=== PATIENT | male | born 1945 | race Caucasian/White ===

== ENCOUNTER 2017-08-21 12:12 | Outpatient (CLI) | payer MEDICARE ==
--- NOTE | 2017-08-21 14:23 | PET ---
PET SCAN FOR DEMENTIA: HISTORY: Altered mental status. Degeneration of brain/dementia. COMPARISON: None. CORRELATION: Head CT 06/21. TECHNIQUE: PET scan with CT attenuation correction is performed from the brain. The patient was administered 8. 6 mCi of [id number]. FINDINGS: Homogeneous distribution of radiotracer in the brain parenchyma. No evidence of decreased FDG avidit y. IMPRESSION: Unremarkable exam. POS: [facility]
== END 2017-08-21 12:13 | disposition home or self-care (01) ==
LOC: PET 12:12
PROVIDERS: ATTEND Psychiatry & Neurology Neurology
DX: G31.1 Senile degeneration of brain, not elsewhere classified (principal)
CPT/HCPCS: 78608; A9552

== ENCOUNTER 2019-05-26 17:35 | Emergency (ER) | payer MEDICARE ==
[2019-05-26 18:54] LABS: #Basophils 0.1 thou/uL (0.0-0.2); #Eosinphils 0.3 thou/uL (0.0-0.7); #Lymphocytes 3.6 thou/uL (1.20-3.40); #Monocytes 0.9 thou/uL (0.11-0.59); #Neutrophils 6.2 thou/uL (1.40-6.50); %Eosinophils 2.3 % (0.0-10.0); %Lymphocytes 32.4 % (21.0-51.0); %Monocytes 8.4 % (0.0-10.0); %Neutrophils 55.8 % (42.0-75.0); Hemoglobin 14.5 g/dL (14.0-18.0); Mean Corpuscular HGB CONC 33.8 g/dL (32.0-36.0); Mean Corpuscular Hemoglobin 34.1 pg (27.0-31.0); Mean Platelet Volume 7.8 fL (7.4-10.4); Platelet Count 202 thou/uL (130-400); RBC Distribution Width 13.1 % (11.5-14.5); Red Blood Cell (RBC) Count 4.24 mill/uL (4.70-6.10)
[2019-05-26 19:13] LABS: ALT (SGPT) 17 U/L (8-55); AST (SGOT) 16 U/L (5-34); Albumin 3.6 g/dL (3.4-4.8); Alkaline Phosphatase 105 U/L (40-110); Anion Gap 11 mmol/L (10-20); BUN (Urea Nitrogen) 26 mg/dL (8.4-25.7); Bilirubin, Total 0.3 mg/dL (0.2-1.2); Calc. Creatinine Clearance 0 mL/min (70-130); Calcium 9.1 mg/dL (7.8-10.44); Carbon Dioxide 30 mmol/L (23-31); Chloride 106 mmol/L (98-107); Estimated GFR-MDRD 43; Globulin 2.9 g/dL (2.4-3.5); Glucose 180 mg/dL (83-110); Potassium 4.1 mmol/L (3.5-5.1); Protein, Total 6.5 g/dL (5.8-8.1); Sodium 143 mmol/L (136-145)
[2019-05-26 19:24] LABS: Bacteria/HPF None Seen HPF (None Seen); Bilirubin Negative (Negative); Blood, Urine Negative (Negative); Clarity Clear (Clear); Glucose, Urine (Dipstick) 70 mg/dL (Negative); Leukocyte Negative Leu/uL (Negative); Nitrite Negative (Negative); Protein, Urine (Dipstick) 300 mg/dL (Neg-Trace); RBC/HPF 0-3 HPF (0-3); Squamous Epithelial 0-3 HPF (0-3); Urobilinogen Normal mg/dL (Less than 2); WBC/HPF 0-3 HPF (0-3)
--- NOTE | 2019-05-26 19:50 | CT ---
CT BRAIN WITHOUT CONTRAST: HISTORY: Altered mental status, dementia COMPARISON: 06/11/2016 FINDINGS: No evidence of acute infarct, hemorrhage, midline shift or abnormal extra-axial fluid collections is seen. The ventricular size is appropriate and the basilar cisterns are patent. The bony calvarium is intact. The visualized paranasal sinuses and mastoid air cells are well aerated. IMPRESSION: No CT evidence of acute intracranial process.
== END 2019-05-26 21:32 | disposition home or self-care (01) ==
LOC: ERS 17:35
DX: Z00.00 Encounter for general adult medical examination without abnormal findings (principal); I10 Essential (primary) hypertension; E78.00 Pure hypercholesterolemia, unspecified; F03.90 Unspecified dementia, unspecified severity, without behavioral disturbance, psychotic disturbance, mood disturbance, and anxiety; Z79.82 Long term (current) use of aspirin; Z79.899 Other long term (current) drug therapy
CPT/HCPCS: 36415; 70450; 80053; 81003; 81015; 85025; 93005

== ENCOUNTER 2020-08-11 10:53 | Inpatient (IN) | payer MEDICARE ==
[2020-08-11 12:11] LABS: ALT (SGPT) 19 U/L (8-55); AST (SGOT) 18 U/L (5-34); Albumin 3.9 g/dL (3.4-4.8); Alkaline Phosphatase 103 U/L (40-110); Anion Gap 12 mmol/L (10-20); BUN (Urea Nitrogen) 26 mg/dL (8.4-25.7); Bilirubin, Total 0.5 mg/dL (0.2-1.2); Calc. Creatinine Clearance 0 mL/min (70-130); Calcium 9.7 mg/dL (7.8-10.44); Carbon Dioxide 23 mmol/L (23-31); Chloride 110 mmol/L (98-107); Globulin 3.3 g/dL (2.4-3.5); Glucose 148 mg/dL (83-110); Lipase 21 U/L (8-78); Potassium 4.2 mmol/L (3.5-5.1); Protein, Total 7.2 g/dL (5.8-8.1); Sodium 141 mmol/L (136-145)
[2020-08-11 12:26] LABS: Eosinophils 3 % (0-10); Hemoglobin 14.4 g/dL (14.0-18.0); Lymphocytes 27 % (21-51); MDiff Complete? YES; Mean Corpuscular HGB CONC 33.6 g/dL (32.0-36.0); Mean Corpuscular Hemoglobin 33.8 pg (27.0-31.0); Mean Platelet Volume 9.1 fL (7.4-10.4); Monocytes 5 % (0-10); Neutrophil 63 % (42-75); Platelet Count 120 thou/uL (130-400); Platelet Morphology Comment Appears Decreased; RBC Distribution Width 12.4 % (11.5-14.5); Reactive Lymphocytes 2 % (0-10); Red Blood Cell (RBC) Count 4.25 mill/uL (4.70-6.10); Small Platelets SLIGHT; White Blood Cell (WBC) Count 10.6 thou/uL (4.8-10.8)
[2020-08-11 12:40] LABS: CKMB 4.7 ng/mL (0-6.6)
[2020-08-11] MEDS ORDERED: Aspirin Chewable 81 MG TAB ONE (12:50)
[2020-08-11] MEDS ORDERED: Enoxaparin Sodium 100 MG/ML SYRINGE ONE (12:55)
[2020-08-11] MEDS ORDERED: Acetaminophen 650 MG Suppository PR PRN (14:39)
[2020-08-11] MEDS ORDERED: Nitroglycerin 0.4 MG TAB (25 Tab Bottle) SL PRN (14:39)
[2020-08-11 15:50] LABS: Troponin I 1.651 ng/mL (< 0.028)
[2020-08-11 19:28] LABS: Troponin I 1.893 ng/mL (< 0.028)
[2020-08-11] MEDS: Atorvastatin Calcium 40 MG TAB PO SCH (21:19)
[2020-08-11] MEDS: Acetaminophen 325 MG TAB PO PRN (21:25)
[2020-08-12 01:53] LABS: SARS-CoV-2 PCR by NAA Not Detected (NotDetected)
[2020-08-12 02:33] VITALS: BMI 33.9
[2020-08-12 05:32] LABS: #Basophils 0.1 thou/uL (0.0-0.2); #Eosinphils 0.3 thou/uL (0.0-0.7); #Lymphocytes 4.2 thou/uL (1.20-3.40); #Monocytes 1.2 thou/uL (0.11-0.59); #Neutrophils 5.8 thou/uL (1.40-6.50); %Basophils 1.2 % (0.0-1.0); %Eosinophils 2.6 % (0.0-10.0); %Lymphocytes 35.8 % (21.0-51.0); %Monocytes 10.1 % (0.0-10.0); %Neutrophils 50.2 % (42.0-75.0); Mean Corpuscular Hemoglobin 32.4 pg (27.0-31.0); Mean Platelet Volume 8.1 fL (7.4-10.4); Platelet Count 202 thou/uL (130-400); RBC Distribution Width 12.3 % (11.5-14.5); Red Blood Cell (RBC) Count 4.03 mill/uL (4.70-6.10); White Blood Cell (WBC) Count 11.6 thou/uL (4.8-10.8)
[2020-08-12 05:55] LABS: Anion Gap 10 mmol/L (10-20); BUN (Urea Nitrogen) 31 mg/dL (8.4-25.7); Calc. Creatinine Clearance 59 mL/min (70-130); Calcium 9.1 mg/dL (7.8-10.44); Carbon Dioxide 25 mmol/L (23-31); Cardiac Risk 2.9 (Less than 4.5); Chloride 111 mmol/L (98-107); Cholesterol 152 mg/dl (< 200 Desired); Glucose 112 mg/dL (83-110); HDL Cholesterol 52 mg/dL (>60 Neg Risk); LDL Cholesterol, Calculated 66 mg/dL; Potassium 3.9 mmol/L (3.5-5.1); Sodium 142 mmol/L (136-145); Triglycerides 170 mg/dL (Less than 150)
[2020-08-12] MEDS ORDERED: Communication Order-Pharmacy FS SCH (07:45)
[2020-08-12] MEDS: Sodium Chloride 0.9% 1,000 ML IV SCH ×2 (09:46→20:17)
[2020-08-12] MEDS: Aspirin 81 mg Enteric Coated Tablet PO SCH (09:47)
[2020-08-12] MEDS: Enoxaparin Sodium 100 MG/ML SYRINGE SC SCH ×2 (09:47→20:16)
[2020-08-12] MEDS: Amlodipine 5 MG TAB PO SCH (09:47)
[2020-08-12] MEDS: Atorvastatin Calcium 40 MG TAB PO SCH (20:16)
[2020-08-13] MEDS: Nitroglycerin 2% Ointment 1 INCH/1 GM Packet TOP SCH ×3 (00:15→16:03)
[2020-08-13] MEDS: Sodium Chloride 0.9% 1,000 ML IV SCH ×2 (04:30→16:03)
[2020-08-13 04:52] LABS: #Basophils 0.1 thou/uL (0.0-0.2); #Eosinphils 0.4 thou/uL (0.0-0.7); #Lymphocytes 3.7 thou/uL (1.20-3.40); #Neutrophils 5.1 thou/uL (1.40-6.50); %Basophils 1.4 % (0.0-1.0); %Eosinophils 3.6 % (0.0-10.0); %Lymphocytes 35.8 % (21.0-51.0); %Monocytes 9.6 % (0.0-10.0); %Neutrophils 49.5 % (42.0-75.0); Hemoglobin 12.4 g/dL (14.0-18.0); Mean Corpuscular HGB CONC 32.2 g/dL (32.0-36.0); Mean Corpuscular Hemoglobin 32.8 pg (27.0-31.0); Mean Platelet Volume 7.7 fL (7.4-10.4); Platelet Count 183 thou/uL (130-400); RBC Distribution Width 12.4 % (11.5-14.5); Red Blood Cell (RBC) Count 3.77 mill/uL (4.70-6.10); White Blood Cell (WBC) Count 10.4 thou/uL (4.8-10.8)
[2020-08-13 05:15] LABS: Anion Gap 10 mmol/L (10-20); BUN (Urea Nitrogen) 26 mg/dL (8.4-25.7); Calc. Creatinine Clearance 62 mL/min (70-130); Calcium 8.7 mg/dL (7.8-10.44); Carbon Dioxide 22 mmol/L (23-31); Chloride 112 mmol/L (98-107); Glucose 106 mg/dL (83-110); Potassium 4.4 mmol/L (3.5-5.1); Sodium 140 mmol/L (136-145)
[2020-08-13] MEDS: Aspirin 81 mg Enteric Coated Tablet PO SCH (08:59)
[2020-08-13] MEDS: Enoxaparin Sodium 100 MG/ML SYRINGE SC SCH ×2 (08:59→21:06)
[2020-08-13] MEDS: Amlodipine 5 MG TAB PO SCH (08:59)
[2020-08-13] MEDS: Atorvastatin Calcium 40 MG TAB PO SCH (21:06)
[2020-08-14] MEDS: Nitroglycerin 2% Ointment 1 INCH/1 GM Packet TOP SCH ×2 (01:50→08:43)
[2020-08-14] MEDS: Sodium Chloride 0.9% 1,000 ML IV SCH (03:22)
[2020-08-14 05:35] LABS: #Basophils 0.1 thou/uL (0.0-0.2); #Eosinphils 0.3 thou/uL (0.0-0.7); #Lymphocytes 3.9 thou/uL (1.20-3.40); #Monocytes 1.2 thou/uL (0.11-0.59); %Basophils 0.7 % (0.0-1.0); %Eosinophils 2.6 % (0.0-10.0); %Lymphocytes 33.8 % (21.0-51.0); %Monocytes 10.5 % (0.0-10.0); %Neutrophils 52.5 % (42.0-75.0); Hemoglobin 13.1 g/dL (14.0-18.0); Mean Corpuscular HGB CONC 32.3 g/dL (32.0-36.0); Mean Corpuscular Hemoglobin 32.7 pg (27.0-31.0); Mean Platelet Volume 7.8 fL (7.4-10.4); Platelet Count 178 thou/uL (130-400); RBC Distribution Width 12.3 % (11.5-14.5); Red Blood Cell (RBC) Count 3.99 mill/uL (4.70-6.10); White Blood Cell (WBC) Count 11.4 thou/uL (4.8-10.8)
[2020-08-14 05:55] LABS: Anion Gap 11 mmol/L (10-20); BUN (Urea Nitrogen) 23 mg/dL (8.4-25.7); Calc. Creatinine Clearance 61 mL/min (70-130); Calcium 8.8 mg/dL (7.8-10.44); Carbon Dioxide 20 mmol/L (23-31); Chloride 112 mmol/L (98-107); Glucose 104 mg/dL (83-110); Potassium 3.9 mmol/L (3.5-5.1); Sodium 139 mmol/L (136-145)
[2020-08-14] MEDS ORDERED: Lidocaine 1% (PF) 30 ML VIAL ONE (06:37)
[2020-08-14] MEDS ORDERED: Midazolam HCl 2 mg/2 ml Vial ONE (07:10)
[2020-08-14] MEDS ORDERED: Fentanyl 100 MCG/2 ML VIAL ONE (07:11)
[2020-08-14] MEDS ORDERED: hydrALAZINE 20 MG/ML VIAL ONE (07:19)
[2020-08-14] MEDS ORDERED: Heparin 10,000 UNITS/ 10 ML VIAL ONE (07:21)
[2020-08-14] MEDS ORDERED: Aspirin Chewable 81 MG TAB ONE (07:38)
[2020-08-14] MEDS ORDERED: Clopidogrel Bisulfate 300 MG TAB ONE (07:41)
[2020-08-14] MEDS: Amlodipine 5 MG TAB PO SCH (08:43)
[2020-08-14] MEDS: Aspirin 81 mg Enteric Coated Tablet PO SCH (08:43)
[2020-08-14] MEDS ORDERED: Iopamidol 370 76% 50 ML VIAL FS ONE (08:48)
[2020-08-14] MEDS ORDERED: Iopamidol 370 76% 100 ML VIAL ONE (08:48)
[2020-08-14] MEDS ORDERED: Sodium Chloride 0.9% 1,000 ML IV SCH (09:30)
[2020-08-14] MEDS: Acetaminophen 325 MG TAB PO PRN (11:18)
[2020-08-14] MEDS: Atorvastatin Calcium 40 MG TAB PO SCH (20:17)
[2020-08-15] MEDS ORDERED: hydrALAZINE 20 MG/ML VIAL SLOW IVP PRN (04:34)
[2020-08-15] MEDS: Amlodipine 5 MG TAB PO SCH (04:45)
[2020-08-15 05:41] LABS: #Basophils 0.1 thou/uL (0.0-0.2); #Eosinphils 0.2 thou/uL (0.0-0.7); #Lymphocytes 2.6 thou/uL (1.20-3.40); #Monocytes 1.2 thou/uL (0.11-0.59); #Neutrophils 6.8 thou/uL (1.40-6.50); %Basophils 0.6 % (0.0-1.0); %Monocytes 10.7 % (0.0-10.0); %Neutrophils 62.7 % (42.0-75.0); Hemoglobin 11.6 g/dL (14.0-18.0); Mean Corpuscular HGB CONC 32.5 g/dL (32.0-36.0); Mean Platelet Volume 7.7 fL (7.4-10.4); Platelet Count 177 thou/uL (130-400); RBC Distribution Width 12.4 % (11.5-14.5); Red Blood Cell (RBC) Count 3.51 mill/uL (4.70-6.10); White Blood Cell (WBC) Count 10.9 thou/uL (4.8-10.8)
[2020-08-15 06:01] LABS: ALT (SGPT) 68 U/L (8-55); AST (SGOT) 62 U/L (5-34); Albumin 3.3 g/dL (3.4-4.8); Alkaline Phosphatase 85 U/L (40-110); Anion Gap 11 mmol/L (10-20); BUN (Urea Nitrogen) 18 mg/dL (8.4-25.7); Bilirubin, Total 0.7 mg/dL (0.2-1.2); Calc. Creatinine Clearance 67 mL/min (70-130); Calcium 8.5 mg/dL (7.8-10.44); Carbon Dioxide 21 mmol/L (23-31); Chloride 111 mmol/L (98-107); Globulin 2.6 g/dL (2.4-3.5); Glucose 109 mg/dL (83-110); Potassium 3.6 mmol/L (3.5-5.1); Protein, Total 5.9 g/dL (5.8-8.1); Sodium 139 mmol/L (136-145)
[2020-08-15 07:59] VITALS: TEMP 98
[2020-08-15] MEDS ORDERED: Aspirin Chewable 81 MG TAB PO SCH (09:00)
[2020-08-15] MEDS ORDERED: Clopidogrel Bisulfate 75 MG TAB PO SCH (09:00)
[2020-08-15] MEDS: Aspirin 81 mg Enteric Coated Tablet PO SCH (09:08)
[2020-08-15 11:39] VITALS: BP 181/81
== END 2020-08-15 19:12 | disposition home or self-care (01) | DRG 247 ==
LOC: ERS 10:53 → ERHOLD 15:01 → 2SE 19:03
PROVIDERS: ADMIT Internal Medicine; ATTEND Hospitalist
PROC: 027034Z Dilation of Coronary Artery, One Artery with Drug-eluting Intraluminal Device, Percutaneous Approach (ICD-10-PCS; principal; 2020-08-14)
PROC: 4A023N7 Measurement of Cardiac Sampling and Pressure, Left Heart, Percutaneous Approach (ICD-10-PCS; 2020-08-14)
PROC: B2111ZZ Fluoroscopy of Multiple Coronary Arteries using Low Osmolar Contrast (ICD-10-PCS; 2020-08-14)
PROC: B2151ZZ Fluoroscopy of Left Heart using Low Osmolar Contrast (ICD-10-PCS; 2020-08-14)
DX: I21.4 Non-ST elevation (NSTEMI) myocardial infarction (principal); Z20.822 Contact with and (suspected) exposure to COVID-19; E78.5 Hyperlipidemia, unspecified; F03.90 Unspecified dementia, unspecified severity, without behavioral disturbance, psychotic disturbance, mood disturbance, and anxiety; F41.9 Anxiety disorder, unspecified; I12.9 Hypertensive chronic kidney disease with stage 1 through stage 4 chronic kidney disease, or unspecified chronic kidney disease; F32.9 Major depressive disorder, single episode, unspecified; E78.00 Pure hypercholesterolemia, unspecified; R29.6 Repeated falls; N18.30 Chronic kidney disease, stage 3 unspecified; I25.110 Atherosclerotic heart disease of native coronary artery with unstable angina pectoris; Z88.8 Allergy status to other drugs, medicaments and biological substances; Z79.899 Other long term (current) drug therapy; Z79.82 Long term (current) use of aspirin
CPT/HCPCS: 36415; 71045; 76942; 78451; 80048; 80053; 80061; 82553; 83690; 83735; 84443; 84484; 85025; 85347; 87635; 92928; 93005; 93010; 93306; 93458; 93798; 94760; 96372; 99152; 99153; A9540; C9600; J0360; J1644; J1650; J2001; J2250; J3010; Q9967; U0003; U0005

== ENCOUNTER 2020-09-15 14:45 | Inpatient (IN) | payer MEDICARE ==
[2020-09-15 16:17] LABS: Hemoglobin 12.9 g/dL (14.0-18.0); Mean Corpuscular HGB CONC 34.6 g/dL (32.0-36.0); Mean Corpuscular Hemoglobin 35.2 pg (27.0-31.0); Mean Platelet Volume 8.3 fL (7.4-10.4); Platelet Count 164 thou/uL (130-400); Red Blood Cell (RBC) Count 3.68 mill/uL (4.70-6.10); White Blood Cell (WBC) Count 19.2 thou/uL (4.8-10.8)
[2020-09-15 16:37] LABS: ALT (SGPT) 9 U/L (8-55); AST (SGOT) 9 U/L (5-34); Albumin 3.7 g/dL (3.4-4.8); Alkaline Phosphatase 89 U/L (40-110); Anion Gap 11 mmol/L (10-20); BUN (Urea Nitrogen) 20 mg/dL (8.4-25.7); Bilirubin, Total 0.8 mg/dL (0.2-1.2); Calc. Creatinine Clearance 0 mL/min (70-130); Calcium 9.6 mg/dL (7.8-10.44); Carbon Dioxide 23 mmol/L (23-31); Chloride 106 mmol/L (98-107); Globulin 3.6 g/dL (2.4-3.5); Glucose 131 mg/dL (83-110); Potassium 4.2 mmol/L (3.5-5.1); Protein, Total 7.3 g/dL (5.8-8.1); Sodium 136 mmol/L (136-145)
[2020-09-15 16:48] LABS: Lymphocytes 13 % (21-51); MDiff Complete? YES; Macrocytosis SLIGHT = 6-15 cells (100X) (0-5/hpf); Monocytes 11 % (0-10); Neutrophil 76 % (42-75); Platelet Morphology Comment Appears Adequate
[2020-09-15 17:21] LABS: Bilirubin Negative (Negative); Blood, Urine Trace (Negative); Glucose, Urine (Dipstick) Negative (Negative); Ketone, Urine Negative (Negative); Leukocyte Moderate (Negative); Nitrite Positive (Negative); Protein, Urine (Dipstick) > or equal to 300 mg/dL (Neg-Trace); Specific Gravity, Urine 1.015 (1.005-1.030); Urobilinogen 0.2 mg/dL (Less than 2); pH, Urine 8.5 (5.0-9.0)
[2020-09-15 17:23] LABS: Clarity Cloudy (Clear)
[2020-09-15 17:25] LABS: Squamous Epithelial None Seen HPF (0-3); WBC/HPF Greater than 50 HPF (0-3)
[2020-09-15 17:31] LABS: Bacteria/HPF 2+ HPF (None Seen)
[2020-09-15] MEDS ORDERED: cefTRIAXone\\ROCEPHIN 2 GM VIAL ONE (19:06)
[2020-09-15] MEDS ORDERED: Acetaminophen 325 MG TAB PO PRN (22:03)
[2020-09-15] MEDS ORDERED: Ondansetron ODT 4 MG TAB PO PRN (22:03)
[2020-09-15] MEDS ORDERED: Ondansetron PF 4 MG/2 ML Vial IVP PRN (22:03)
[2020-09-15] MEDS: Sodium Chloride 0.9% 1,000 ML IV SCH (23:00)
[2020-09-15 23:06] VITALS: BMI 31.9
[2020-09-16 05:29] LABS: #Lymphocytes 1.4 thou/uL (1.20-3.40); #Monocytes 1.4 thou/uL (0.11-0.59); %Basophils 0.3 % (0.0-1.0); %Eosinophils 0.1 % (0.0-10.0); %Lymphocytes 12.1 % (21.0-51.0); %Monocytes 11.6 % (0.0-10.0); %Neutrophils 75.9 % (42.0-75.0); Hemoglobin 11.7 g/dL (14.0-18.0); Mean Corpuscular HGB CONC 32.3 g/dL (32.0-36.0); Mean Corpuscular Hemoglobin 33.1 pg (27.0-31.0); Mean Platelet Volume 8.3 fL (7.4-10.4); Platelet Count 153 thou/uL (130-400); Red Blood Cell (RBC) Count 3.53 mill/uL (4.70-6.10); White Blood Cell (WBC) Count 11.8 thou/uL (4.8-10.8)
[2020-09-16 05:52] LABS: Anion Gap 12 mmol/L (10-20); BUN (Urea Nitrogen) 19 mg/dL (8.4-25.7); Calc. Creatinine Clearance 48 mL/min (70-130); Calcium 8.9 mg/dL (7.8-10.44); Carbon Dioxide 21 mmol/L (23-31); Chloride 110 mmol/L (98-107); Glucose 139 mg/dL (83-110); Potassium 3.9 mmol/L (3.5-5.1); Sodium 139 mmol/L (136-145)
[2020-09-16] MEDS: Clopidogrel Bisulfate 75 MG TAB PO SCH (09:10)
[2020-09-16] MEDS: Aspirin 81 mg Enteric Coated Tablet PO SCH (09:10)
[2020-09-16] MEDS: Amlodipine 5 MG TAB PO SCH (09:10)
[2020-09-16] MEDS: Bupropion 150 MG SR TAB PO SCH ×2 (09:13→20:23)
[2020-09-16] MEDS: Sodium Chloride 0.9% 1,000 ML IV SCH ×2 (09:15→20:44)
[2020-09-16 09:22] LABS: SARS-CoV-2 NAA Rapid Test Not Detected (NotDetected)
[2020-09-16] MEDS: cefTRIAXone\\ROCEPHIN 1 GM in Sodium Chloride 0.9% 100 ML IVPB SCH (14:58)
[2020-09-16] MEDS ORDERED: Atorvastatin Calcium 40 MG TAB PO SCH (21:00)
[2020-09-17] MEDS: Sodium Chloride 0.9% 1,000 ML IV SCH ×2 (05:59→15:05)
[2020-09-17] MEDS: Amlodipine 5 MG TAB PO SCH (08:37)
[2020-09-17] MEDS: Aspirin 81 mg Enteric Coated Tablet PO SCH (08:38)
[2020-09-17] MEDS: Clopidogrel Bisulfate 75 MG TAB PO SCH (08:38)
[2020-09-17] MEDS: Bupropion 150 MG SR TAB PO SCH (08:41)
[2020-09-17 09:20] LABS: Anion Gap 12 mmol/L (10-20); BUN (Urea Nitrogen) 17 mg/dL (8.4-25.7); Calc. Creatinine Clearance 62 mL/min (70-130); Calcium 8.5 mg/dL (7.8-10.44); Carbon Dioxide 20 mmol/L (23-31); Chloride 111 mmol/L (98-107); Glucose 102 mg/dL (83-110); Potassium 3.9 mmol/L (3.5-5.1); Sodium 139 mmol/L (136-145)
[2020-09-17] MEDS: cefTRIAXone\\ROCEPHIN 1 GM in Sodium Chloride 0.9% 100 ML IVPB SCH (15:05)
[2020-09-17 16:11] VITALS: BP 122/67; TEMP 98.1
== END 2020-09-17 16:20 | disposition home or self-care (01) | DRG 683 ==
LOC: ERS 14:45 → SURG B 21:09
PROVIDERS: ADMIT Family Medicine; ATTEND Internal Medicine
DX: N17.9 Acute kidney failure, unspecified (principal); N39.0 Urinary tract infection, site not specified; Z20.822 Contact with and (suspected) exposure to COVID-19; E78.5 Hyperlipidemia, unspecified; F03.90 Unspecified dementia, unspecified severity, without behavioral disturbance, psychotic disturbance, mood disturbance, and anxiety; R29.6 Repeated falls; F41.9 Anxiety disorder, unspecified; I12.9 Hypertensive chronic kidney disease with stage 1 through stage 4 chronic kidney disease, or unspecified chronic kidney disease; N18.30 Chronic kidney disease, stage 3 unspecified; Z95.5 Presence of coronary angioplasty implant and graft; Z88.8 Allergy status to other drugs, medicaments and biological substances; Z79.899 Other long term (current) drug therapy; I25.2 Old myocardial infarction
CPT/HCPCS: 36415; 71045; 80048; 80053; 81003; 81015; 83605; 83880; 84484; 85025; 87040; 87077; 87086; 87186; 93005; 93798; 96365; J0696; J3490; U0002; U0003; U0005

== ENCOUNTER 2021-03-08 13:01 | Outpatient (CLI) | payer MEDICARE | END 2021-03-08 13:02 | disposition home or self-care (01) | LOC: BICULT 13:01 | PROVIDERS: ATTEND Internal Medicine Nephrology | DX: N18.30 Chronic kidney disease, stage 3 unspecified (principal); N28.1 Cyst of kidney, acquired | CPT/HCPCS: 76770 ==

== ENCOUNTER 2021-04-19 11:27 | Outpatient (CLI) | payer MEDICARE ==
[2021-04-19 12:57] LABS: Hemoglobin 14.4 g/dL (13.5-17.5); Mean Corpuscular HGB CONC 32.7 g/dL (32.0-36.0); Mean Corpuscular Volume 100.9 fl (81.2-95.1); Mean Platelet Volume 9.9 fl (7.4-10.4); Platelet Count 221 10x3/uL (150-450); RBC Distribution Width 13.2 % (11.5-14.5); Red Blood Cell (RBC) Count 4.37 10x6/uL (4.32-5.72)
[2021-04-19 13:24] LABS: Anion Gap 13 mmol/L (10-20); BUN (Urea Nitrogen) 20 mg/dL (8.4-25.7); Calc. Creatinine Clearance 0 mL/min (70-130); Calcium 9.1 mg/dL (7.8-10.44); Carbon Dioxide 24 mmol/L (23-31); Chloride 109 mmol/L (98-107); Glucose 104 mg/dL (83-110); Potassium 4.8 mmol/L (3.5-5.1); Sodium 141 mmol/L (136-145)
[2021-04-20 13:49] LABS: SARS-CoV-2 PCR by NAA Not Detected (NotDetected)
== END 2021-04-19 11:28 | disposition home or self-care (01) ==
LOC: LABBT 11:27
PROVIDERS: ATTEND Student in an Organized Health Care Education/Training Program
DX: Z01.818 Encounter for other preprocedural examination (principal); L98.9 Disorder of the skin and subcutaneous tissue, unspecified; Z20.822 Contact with and (suspected) exposure to COVID-19
CPT/HCPCS: 80048; 85027; 93005; U0003; U0005; 93010

== ENCOUNTER 2021-04-24 08:17 | Day surgery (SDC) | payer MEDICARE ==
[2021-04-17 11:05] VITALS: BMI 31.0
[2021-04-24] MEDS ORDERED: Fentanyl 100 MCG/2 ML VIAL ONE (08:48)
[2021-04-24] MEDS ORDERED: Xylocaine 1% w/ Epi 1:100K 10 ML VIAL ONE (08:54)
[2021-04-24] MEDS ORDERED: Bacitracin Zinc Ointment 30 gm TUBE ONE (08:54)
[2021-04-24] MEDS ORDERED: SUGAMMADEX SODIUM 200 MG/2 ML VIAL ONE (09:31)
[2021-04-24] MEDS ORDERED: ePHEDrine 50 MG/ML VIAL ONE (09:50)
[2021-04-24] MEDS ORDERED: PROPOFOL 200 MG/20 ML VIAL ONE (09:50)
[2021-04-24] MEDS ORDERED: Rocuronium Bromide 10 MG/ML (10ML VIAL) ONE (09:50)
[2021-04-24] MEDS ORDERED: Lidocaine 1% PF 5 ML VIAL ONE (09:50)
[2021-04-24] MEDS ORDERED: Ondansetron PF 4 MG/2 ML Vial ONE (09:50)
[2021-04-24] MEDS ORDERED: HYDROcodone/Acetaminophen 5/325 mg Tablet ONE (13:16)
== END 2021-04-24 13:35 | disposition home or self-care (01) ==
LOC: SDC 08:17
PROVIDERS: ATTEND Student in an Organized Health Care Education/Training Program
PROC: 0HB1XZZ Excision of Face Skin, External Approach (ICD-10-PCS; principal; 2021-04-24)
DX: C44.319 Basal cell carcinoma of skin of other parts of face (principal); E78.5 Hyperlipidemia, unspecified; I10 Essential (primary) hypertension; N52.9 Male erectile dysfunction, unspecified; I25.2 Old myocardial infarction; E66.9 Obesity, unspecified; Z68.31 Body mass index [BMI] 31.0-31.9, adult; Z86.73 Personal history of transient ischemic attack (TIA), and cerebral infarction without residual deficits; Z79.02 Long term (current) use of antithrombotics/antiplatelets; Z79.82 Long term (current) use of aspirin; Z79.899 Other long term (current) drug therapy; Z88.8 Allergy status to other drugs, medicaments and biological substances
CPT/HCPCS: 88305; 88331; 88332; J2405; J2704; J3010; J3490

== ENCOUNTER 2022-03-28 05:26 | Emergency (ER) | payer MEDICARE ==
[2022-03-28] MEDS ORDERED: Ketorolac Tromethamine 30 MG/ML VIAL ONE (06:06)
[2022-03-28] MEDS ORDERED: Ondansetron PF 4 MG/2 ML Vial ONE (06:06)
[2022-03-28] MEDS ORDERED: Ondansetron ODT 4 MG TAB ONE (06:21)
[2022-03-28 06:23] LABS: #Basophils 0.1 thou/uL (0.0-0.2); #Eosinphils 0.1 thou/uL (0.0-0.7); #Lymphocytes 2.7 thou/uL (1.20-3.40); #Monocytes 1.6 thou/uL (0.11-0.59); #Neutrophils 7.4 thou/uL (1.40-6.50); %Basophils 0.5 % (0.0-1.0); %Eosinophils 0.8 % (0.0-10.0); %Lymphocytes 22.5 % (21.0-51.0); %Monocytes 13.8 % (0.0-10.0); %Neutrophils 62.4 % (42.0-75.0); Hemoglobin 14.5 g/dL (14.0-18.0); Mean Corpuscular HGB CONC 33.5 g/dL (32.0-36.0); Mean Platelet Volume 7.8 fL (7.4-10.4); Platelet Count 181 10x3/uL (130-400); RBC Distribution Width 12.2 % (11.5-14.5); Red Blood Cell (RBC) Count 4.26 mill/uL (4.70-6.10); White Blood Cell (WBC) Count 11.8 10x3/uL (4.8-10.8)
[2022-03-28 06:44] LABS: ALT (SGPT) 14 U/L (8-55); AST (SGOT) 21 U/L (5-34); Albumin 3.4 g/dL (3.4-4.8); Alkaline Phosphatase 100 U/L (40-110); Anion Gap 15 mmol/L (10-20); BUN (Urea Nitrogen) 27 mg/dL (8.4-25.7); Bilirubin, Total 0.4 mg/dL (0.2-1.2); Calc. Creatinine Clearance 0 mL/min (70-130); Calcium 8.5 mg/dL (7.8-10.44); Carbon Dioxide 17 mmol/L (23-31); Chloride 108 mmol/L (98-107); Estimated GFR 32; Globulin 2.8 g/dL (2.4-3.5); Glucose 194 mg/dL (83-110); Lipase 18 U/L (8-78); Potassium 3.7 mmol/L (3.5-5.1); Protein, Total 6.2 g/dL (5.8-8.1); Sodium 136 mmol/L (136-145)
== END 2022-03-28 08:00 | disposition home or self-care (01) ==
LOC: ERS 05:26
DX: J11.1 Influenza due to unidentified influenza virus with other respiratory manifestations (principal); H10.9 Unspecified conjunctivitis; E78.00 Pure hypercholesterolemia, unspecified; I10 Essential (primary) hypertension; Z86.73 Personal history of transient ischemic attack (TIA), and cerebral infarction without residual deficits
CPT/HCPCS: 36415; 71045; 80053; 83605; 83690; 83880; 84484; 85025; 87040; 93005; 96374; 96375; J1885; J2405; Q0162

== ENCOUNTER 2022-04-10 14:47 | Inpatient (IN) | payer MEDICARE ==
[2022-04-10 15:55] LABS: #Eosinphils 0.1 thou/uL (0.0-0.7); #Lymphocytes 2.2 thou/uL (1.20-3.40); #Monocytes 0.8 thou/uL (0.11-0.59); #Neutrophils 3.9 thou/uL (1.40-6.50); %Basophils 0.1 % (0.0-1.0); %Eosinophils 0.8 % (0.0-10.0); %Lymphocytes 31.6 % (21.0-51.0); %Monocytes 11.3 % (0.0-10.0); %Neutrophils 56.2 % (42.0-75.0); Hemoglobin 13.8 g/dL (14.0-18.0); Mean Corpuscular HGB CONC 34.1 g/dL (32.0-36.0); Mean Corpuscular Hemoglobin 33.8 pg (27.0-31.0); Mean Corpuscular Volume 99.1 fl (78.0-98.0); Mean Platelet Volume 8.3 fL (7.4-10.4); Platelet Count 182 10x3/uL (130-400); RBC Distribution Width 12.4 % (11.5-14.5); Red Blood Cell (RBC) Count 4.08 mill/uL (4.70-6.10)
[2022-04-10 16:15] LABS: ALT (SGPT) 41 U/L (8-55); AST (SGOT) 60 U/L (5-34); Albumin 2.7 g/dL (3.4-4.8); Alkaline Phosphatase 82 U/L (40-110); Anion Gap 9 mmol/L (10-20); BUN (Urea Nitrogen) 23 mg/dL (8.4-25.7); Bilirubin, Total 0.6 mg/dL (0.2-1.2); Calc. Creatinine Clearance 0 mL/min (70-130); Calcium 8.2 mg/dL (7.8-10.44); Carbon Dioxide 23 mmol/L (23-31); Chloride 111 mmol/L (98-107); Estimated GFR 36; Globulin 3.2 g/dL (2.4-3.5); Glucose 108 mg/dL (83-110); Potassium 3.6 mmol/L (3.5-5.1); Protein, Total 5.9 g/dL (5.8-8.1); Sodium 139 mmol/L (136-145)
[2022-04-10] MEDS ORDERED: Amlodipine 5 MG TAB ONE (18:05)
[2022-04-10] MEDS ORDERED: hydrALAZINE 20 MG/ML VIAL ONE (18:05)
[2022-04-10] MEDS ORDERED: Acetaminophen 325 MG TAB PO PRN (18:41)
[2022-04-10] MEDS ORDERED: hydrALAZINE 20 MG/ML VIAL SLOW IVP PRN (18:45)
[2022-04-10 19:06] LABS: SARS-CoV-2 NAA Rapid Test DETECTED (NotDetected)
[2022-04-10 19:54] VITALS: BMI 30.9
[2022-04-10] MEDS: Atorvastatin Calcium 40 MG TAB PO SCH (22:04)
[2022-04-10] MEDS: Rosuvastatin 20 MG TAB PO SCH (22:04)
[2022-04-11] MEDS ORDERED: Aspirin 81 mg Enteric Coated Tablet PO SCH (09:00)
[2022-04-11] MEDS ORDERED: Clopidogrel Bisulfate 75 MG TAB ONE (11:14)
[2022-04-11] MEDS ORDERED: Aspirin Chewable 81 MG TAB ONE (11:14)
[2022-04-11] MEDS: Aspirin 81 mg Enteric Coated Tablet PO SCH (11:28)
[2022-04-11] MEDS: Clopidogrel Bisulfate 75 MG TAB PO SCH (11:28)
[2022-04-11] MEDS: Artificial Tear Sol 15 ML BOT EA EYE SCH (20:51)
[2022-04-11] MEDS: Atorvastatin Calcium 40 MG TAB PO SCH (20:57)
[2022-04-11] MEDS: Rosuvastatin 20 MG TAB PO SCH (20:57)
[2022-04-12] MEDS: Artificial Tear Sol 15 ML BOT EA EYE SCH ×3 (09:21→21:45)
[2022-04-12] MEDS: Clopidogrel Bisulfate 75 MG TAB PO SCH (09:22)
[2022-04-12] MEDS: Aspirin 81 mg Enteric Coated Tablet PO SCH (09:22)
[2022-04-12 14:28] LABS: #Eosinphils 0.1 thou/uL (0.0-0.7); #Lymphocytes 2.6 thou/uL (1.20-3.40); #Monocytes 0.8 thou/uL (0.11-0.59); #Neutrophils 3.4 thou/uL (1.40-6.50); %Basophils 0.4 % (0.0-1.0); %Eosinophils 1.8 % (0.0-10.0); %Lymphocytes 37.1 % (21.0-51.0); %Neutrophils 48.7 % (42.0-75.0); Hemoglobin 12.2 g/dL (14.0-18.0); Mean Corpuscular HGB CONC 33.6 g/dL (32.0-36.0); Mean Corpuscular Hemoglobin 33.5 pg (27.0-31.0); Mean Corpuscular Volume 99.7 fl (78.0-98.0); Mean Platelet Volume 7.9 fL (7.4-10.4); Platelet Count 236 10x3/uL (130-400); RBC Distribution Width 12.4 % (11.5-14.5); Red Blood Cell (RBC) Count 3.65 mill/uL (4.70-6.10); White Blood Cell (WBC) Count 6.9 10x3/uL (4.8-10.8)
[2022-04-12 14:49] LABS: Anion Gap 10 mmol/L (10-20); BUN (Urea Nitrogen) 30 mg/dL (8.4-25.7); Calc. Creatinine Clearance 46 mL/min (70-130); Calcium 8.2 mg/dL (7.8-10.44); Carbon Dioxide 22 mmol/L (23-31); Chloride 113 mmol/L (98-107); Estimated GFR 36; Glucose 128 mg/dL (83-110); Magnesium 1.8 mg/dL (1.6-2.6); Potassium 3.7 mmol/L (3.5-5.1); Sodium 141 mmol/L (136-145)
[2022-04-12] MEDS: cefTRIAXone\\ROCEPHIN 1 GM in Sodium Chloride 0.9% 100 ML IVPB SCH (18:25)
[2022-04-12] MEDS ORDERED: Electrolyte Replacement Protocol 1 EACH FS SCH (19:45)
[2022-04-12] MEDS ORDERED: Amlodipine 5 MG TAB PO SCH (21:00)
[2022-04-12] MEDS: Doxycycline 100 MG CAP PO SCH (21:45)
[2022-04-12] MEDS: Atorvastatin Calcium 40 MG TAB PO SCH (21:45)
[2022-04-13 05:46] LABS: #Eosinphils 0.2 thou/uL (0.0-0.7); #Lymphocytes 2.9 thou/uL (1.20-3.40); #Monocytes 0.8 thou/uL (0.11-0.59); #Neutrophils 2.7 thou/uL (1.40-6.50); %Basophils 0.2 % (0.0-1.0); %Lymphocytes 43.9 % (21.0-51.0); %Monocytes 12.2 % (0.0-10.0); %Neutrophils 40.7 % (42.0-75.0); Hemoglobin 13.4 g/dL (14.0-18.0); Mean Corpuscular HGB CONC 34.1 g/dL (32.0-36.0); Mean Corpuscular Volume 99.8 fl (78.0-98.0); Mean Platelet Volume 7.8 fL (7.4-10.4); Platelet Count 231 10x3/uL (130-400); RBC Distribution Width 12.2 % (11.5-14.5); Red Blood Cell (RBC) Count 3.95 mill/uL (4.70-6.10); White Blood Cell (WBC) Count 6.6 10x3/uL (4.8-10.8)
[2022-04-13 06:10] LABS: Anion Gap 7 mmol/L (10-20); BUN (Urea Nitrogen) 31 mg/dL (8.4-25.7); Calc. Creatinine Clearance 50 mL/min (70-130); Calcium 8.5 mg/dL (7.8-10.44); Carbon Dioxide 23 mmol/L (23-31); Chloride 115 mmol/L (98-107); Estimated GFR 40; Glucose 103 mg/dL (83-110); Potassium 3.4 mmol/L (3.5-5.1); Sodium 142 mmol/L (136-145)
[2022-04-13] MEDS ORDERED: Potassium Chloride 20 MEQ TAB PO SCH (08:00)
[2022-04-13] MEDS ORDERED: Magnesium 2 GM/50 ML(in water) 2 GM in Premix Bag 1 BAG IVPB SCH (09:00)
[2022-04-13] MEDS: Aspirin 81 mg Enteric Coated Tablet PO SCH (09:20)
[2022-04-13] MEDS: Folic Acid 1 MG TAB PO SCH (09:21)
[2022-04-13] MEDS: Clopidogrel Bisulfate 75 MG TAB PO SCH (09:21)
[2022-04-13] MEDS: Doxycycline 100 MG CAP PO SCH ×2 (09:23→20:49)
[2022-04-13] MEDS: Artificial Tear Sol 15 ML BOT EA EYE SCH ×3 (09:24→20:49)
[2022-04-13] MEDS: Multivit, Therapeutic 1 TAB PO SCH (09:25)
[2022-04-13] MEDS: Cyanocobalamin (Vitamin B-12) 1,000 MCG TAB PO SCH (09:26)
[2022-04-13] MEDS: Ascorbic Acid 500 mg Chewable Tablet PO SCH (09:27)
[2022-04-13] MEDS: Heparin 5,000 UNITS/ML VIAL SC SCH ×2 (09:34→20:50)
[2022-04-13 15:13] LABS: Potassium 3.9 mmol/L (3.5-5.1)
[2022-04-13] MEDS: cefTRIAXone\\ROCEPHIN 1 GM in Sodium Chloride 0.9% 100 ML IVPB SCH (16:51)
[2022-04-13] MEDS: Amlodipine 10 MG TAB PO SCH (20:49)
[2022-04-13] MEDS: Bupropion 150 MG SR TAB PO SCH (20:49)
[2022-04-13] MEDS: Atorvastatin Calcium 40 MG TAB PO SCH (20:49)
[2022-04-14 05:45] LABS: #Basophils 0.1 thou/uL (0.0-0.2); #Eosinphils 0.2 thou/uL (0.0-0.7); #Lymphocytes 2.9 thou/uL (1.20-3.40); #Monocytes 0.8 thou/uL (0.11-0.59); #Neutrophils 2.5 thou/uL (1.40-6.50); %Basophils 0.9 % (0.0-1.0); %Eosinophils 2.6 % (0.0-10.0); %Lymphocytes 45.1 % (21.0-51.0); %Monocytes 12.8 % (0.0-10.0); %Neutrophils 38.5 % (42.0-75.0); Hemoglobin 12.9 g/dL (14.0-18.0); Mean Corpuscular HGB CONC 33.6 g/dL (32.0-36.0); Mean Corpuscular Hemoglobin 33.4 pg (27.0-31.0); Mean Corpuscular Volume 99.3 fl (78.0-98.0); Mean Platelet Volume 8.1 fL (7.4-10.4); Platelet Count 241 10x3/uL (130-400); RBC Distribution Width 12.2 % (11.5-14.5); Red Blood Cell (RBC) Count 3.86 mill/uL (4.70-6.10); White Blood Cell (WBC) Count 6.5 10x3/uL (4.8-10.8)
[2022-04-14 06:18] LABS: Anion Gap 9 mmol/L (10-20); BUN (Urea Nitrogen) 25 mg/dL (8.4-25.7); Calc. Creatinine Clearance 49 mL/min (70-130); Calcium 8.2 mg/dL (7.8-10.44); Carbon Dioxide 22 mmol/L (23-31); Chloride 114 mmol/L (98-107); Estimated GFR 39; Glucose 101 mg/dL (83-110); Magnesium 2.1 mg/dL (1.6-2.6); Potassium 3.7 mmol/L (3.5-5.1); Sodium 141 mmol/L (136-145)
[2022-04-14] MEDS: Aspirin 81 mg Enteric Coated Tablet PO SCH (08:57)
[2022-04-14] MEDS: Heparin 5,000 UNITS/ML VIAL SC SCH ×2 (08:58→21:04)
[2022-04-14] MEDS: Folic Acid 1 MG TAB PO SCH (08:58)
[2022-04-14] MEDS: Bupropion 150 MG SR TAB PO SCH ×2 (08:58→21:05)
[2022-04-14] MEDS: Ascorbic Acid 500 mg Chewable Tablet PO SCH (08:58)
[2022-04-14] MEDS: Cyanocobalamin (Vitamin B-12) 1,000 MCG TAB PO SCH (08:58)
[2022-04-14] MEDS: Clopidogrel Bisulfate 75 MG TAB PO SCH (08:58)
[2022-04-14] MEDS: Multivit, Therapeutic 1 TAB PO SCH (09:04)
[2022-04-14] MEDS: Doxycycline 100 MG CAP PO SCH ×2 (09:04→21:05)
[2022-04-14] MEDS: Artificial Tear Sol 15 ML BOT EA EYE SCH ×3 (10:26→21:04)
[2022-04-14] MEDS ORDERED: Benzonatate 100 MG CAP PO PRN (12:29)
[2022-04-14] MEDS ORDERED: guaiFENesin 200 MG TAB PO PRN (12:29)
[2022-04-14] MEDS ORDERED: hydrALAZINE 25 MG TAB PO SCH (12:30)
[2022-04-14] MEDS: cefTRIAXone\\ROCEPHIN 1 GM in Sodium Chloride 0.9% 100 ML IVPB SCH (16:15)
[2022-04-14] MEDS: Amlodipine 10 MG TAB PO SCH (21:04)
[2022-04-14] MEDS: hydrALAZINE 25 MG TAB PO SCH (21:04)
[2022-04-14] MEDS: Atorvastatin Calcium 40 MG TAB PO SCH (21:05)
[2022-04-15 09:05] LABS: Anion Gap 10 mmol/L (10-20); BUN (Urea Nitrogen) 23 mg/dL (8.4-25.7); Calc. Creatinine Clearance 49 mL/min (70-130); Calcium 8.5 mg/dL (7.8-10.44); Carbon Dioxide 21 mmol/L (23-31); Chloride 114 mmol/L (98-107); Estimated GFR 40; Glucose 110 mg/dL (83-110); Potassium 3.5 mmol/L (3.5-5.1); Sodium 141 mmol/L (136-145)
[2022-04-15] MEDS: Folic Acid 1 MG TAB PO SCH ×2 (10:56→10:57)
[2022-04-15] MEDS: Aspirin 81 mg Enteric Coated Tablet PO SCH (10:56)
[2022-04-15] MEDS: Ascorbic Acid 500 mg Chewable Tablet PO SCH (10:56)
[2022-04-15] MEDS: Bupropion 150 MG SR TAB PO SCH ×2 (10:57→20:57)
[2022-04-15] MEDS: Doxycycline 100 MG CAP PO SCH ×2 (10:57→20:57)
[2022-04-15] MEDS: Cyanocobalamin (Vitamin B-12) 1,000 MCG TAB PO SCH (10:57)
[2022-04-15] MEDS: Multivit, Therapeutic 1 TAB PO SCH (10:57)
[2022-04-15] MEDS: Clopidogrel Bisulfate 75 MG TAB PO SCH (10:57)
[2022-04-15] MEDS: Artificial Tear Sol 15 ML BOT EA EYE SCH ×3 (10:58→20:58)
[2022-04-15] MEDS: Heparin 5,000 UNITS/ML VIAL SC SCH ×2 (10:58→20:58)
[2022-04-15] MEDS: hydrALAZINE 25 MG TAB PO SCH ×3 (11:18→20:57)
[2022-04-15] MEDS ORDERED: Potassium Chloride 20 MEQ TAB PO SCH (12:00)
[2022-04-15] MEDS: cefTRIAXone\\ROCEPHIN 1 GM in Sodium Chloride 0.9% 100 ML IVPB SCH (16:35)
[2022-04-15] MEDS: Atorvastatin Calcium 40 MG TAB PO SCH (20:57)
[2022-04-15] MEDS: Amlodipine 10 MG TAB PO SCH (20:57)
[2022-04-16] MEDS: Doxycycline 100 MG CAP PO SCH ×2 (08:33→20:39)
[2022-04-16] MEDS: Cyanocobalamin (Vitamin B-12) 1,000 MCG TAB PO SCH (08:33)
[2022-04-16] MEDS: Ascorbic Acid 500 mg Chewable Tablet PO SCH (08:33)
[2022-04-16] MEDS: Bupropion 150 MG SR TAB PO SCH ×2 (08:33→20:38)
[2022-04-16] MEDS: Clopidogrel Bisulfate 75 MG TAB PO SCH (08:33)
[2022-04-16] MEDS: hydrALAZINE 25 MG TAB PO SCH ×3 (08:33→20:39)
[2022-04-16] MEDS: Aspirin 81 mg Enteric Coated Tablet PO SCH (08:33)
[2022-04-16] MEDS: Multivit, Therapeutic 1 TAB PO SCH (08:34)
[2022-04-16] MEDS: Folic Acid 1 MG TAB PO SCH (08:34)
[2022-04-16] MEDS: Heparin 5,000 UNITS/ML VIAL SC SCH ×2 (08:35→20:38)
[2022-04-16] MEDS: Artificial Tear Sol 15 ML BOT EA EYE SCH ×3 (08:35→20:38)
[2022-04-16] MEDS: cefTRIAXone\\ROCEPHIN 1 GM in Sodium Chloride 0.9% 100 ML IVPB SCH (16:30)
[2022-04-16] MEDS: Atorvastatin Calcium 40 MG TAB PO SCH (20:38)
[2022-04-16] MEDS: Amlodipine 10 MG TAB PO SCH (20:39)
[2022-04-17] MEDS: hydrALAZINE 25 MG TAB PO SCH ×3 (09:14→21:46)
[2022-04-17] MEDS: Ascorbic Acid 500 mg Chewable Tablet PO SCH (09:14)
[2022-04-17] MEDS: Aspirin 81 mg Enteric Coated Tablet PO SCH (09:14)
[2022-04-17] MEDS: Folic Acid 1 MG TAB PO SCH (09:14)
[2022-04-17] MEDS: Multivit, Therapeutic 1 TAB PO SCH (09:14)
[2022-04-17] MEDS: Cyanocobalamin (Vitamin B-12) 1,000 MCG TAB PO SCH (09:14)
[2022-04-17] MEDS: Bupropion 150 MG SR TAB PO SCH ×2 (09:14→21:46)
[2022-04-17] MEDS: Heparin 5,000 UNITS/ML VIAL SC SCH ×2 (09:15→21:46)
[2022-04-17] MEDS: Clopidogrel Bisulfate 75 MG TAB PO SCH (09:15)
[2022-04-17] MEDS: Artificial Tear Sol 15 ML BOT EA EYE SCH ×3 (09:45→21:47)
[2022-04-17] MEDS: Amlodipine 10 MG TAB PO SCH (21:46)
[2022-04-17] MEDS: Atorvastatin Calcium 40 MG TAB PO SCH (21:46)
[2022-04-18] MEDS: Artificial Tear Sol 15 ML BOT EA EYE SCH ×2 (08:29→14:43)
[2022-04-18] MEDS: Bupropion 150 MG SR TAB PO SCH (08:30)
[2022-04-18] MEDS: Folic Acid 1 MG TAB PO SCH (08:30)
[2022-04-18] MEDS: hydrALAZINE 25 MG TAB PO SCH ×2 (08:30→14:38)
[2022-04-18] MEDS: Cyanocobalamin (Vitamin B-12) 1,000 MCG TAB PO SCH (08:30)
[2022-04-18] MEDS: Ascorbic Acid 500 mg Chewable Tablet PO SCH (08:30)
[2022-04-18] MEDS: Clopidogrel Bisulfate 75 MG TAB PO SCH (08:30)
[2022-04-18] MEDS: Multivit, Therapeutic 1 TAB PO SCH (08:30)
[2022-04-18] MEDS: Heparin 5,000 UNITS/ML VIAL SC SCH (08:30)
[2022-04-18] MEDS: Aspirin 81 mg Enteric Coated Tablet PO SCH (08:30)
[2022-04-18 16:10] VITALS: BP 134/70; TEMP 97.9
== END 2022-04-18 19:20 | DRG 64 ==
LOC: ERS 14:47 → OBSVTOIN 18:04 → ERHOLD 18:04 → NEURO 04-11 18:00
PROVIDERS: ADMIT Internal Medicine; ATTEND Internal Medicine
PROC: 8E0ZXY6 Isolation (ICD-10-PCS; principal; 2022-04-10)
DX: I63.9 Cerebral infarction, unspecified (principal); J12.82 Pneumonia due to coronavirus disease 2019; U07.1 COVID-19; Z20.822 Contact with and (suspected) exposure to COVID-19; F03.90 Unspecified dementia, unspecified severity, without behavioral disturbance, psychotic disturbance, mood disturbance, and anxiety; I12.9 Hypertensive chronic kidney disease with stage 1 through stage 4 chronic kidney disease, or unspecified chronic kidney disease; N18.32 Chronic kidney disease, stage 3b; D53.9 Nutritional anemia, unspecified; R29.700 NIHSS score 0; E78.00 Pure hypercholesterolemia, unspecified; F41.9 Anxiety disorder, unspecified; E66.9 Obesity, unspecified; R00.1 Bradycardia, unspecified; I25.10 Atherosclerotic heart disease of native coronary artery without angina pectoris; Z88.8 Allergy status to other drugs, medicaments and biological substances; Z79.82 Long term (current) use of aspirin; Z79.02 Long term (current) use of antithrombotics/antiplatelets; Z79.899 Other long term (current) drug therapy; I25.2 Old myocardial infarction; Z95.5 Presence of coronary angioplasty implant and graft; Z68.30 Body mass index [BMI] 30.0-30.9, adult; Z85.828 Personal history of other malignant neoplasm of skin
CPT/HCPCS: 36415; 70450; 70551; 71045; 71250; 80048; 80053; 80061; 82607; 83735; 84145; 84484; 85025; 86140; 93005; 93306; 93880; 96374; J0360; J0696; J1644; J3475; J3490